=== PATIENT | female | born 1960 | race Caucasian/White ===

== ENCOUNTER 2018-06-03 08:27 | Day surgery (SDC) | payer OTHER ==
[~2018-06-03 08:27] MED LIST: Lactated Ringers 1,000 ML IV SCH; Lidocaine 1%/Sod Bicarbonate in NS 8.4% 1 ML Syringe IDERM PRN; Sodium Chloride 0.9% 10 ML Syringe FLUSH PRN
[2018-06-03] MEDS ORDERED: fentaNYL 100 MCG/2 ML SDV ONE ×2 (08:31→09:53)
[2018-06-03] MEDS ORDERED: Lidocaine 1% 4 ML ONE ×2 (08:31→09:54)
[2018-06-03] MEDS ORDERED: Propofol 200 MG/20 ML SDV ONE ×3 (08:31→11:36)
--- NOTE | 2018-06-03 08:53 | PCM.PREANE ---
Preanesthetic Assessment - Anesthesia/Transfusion/Family Hx Anesthesia History: Prior Anesthesia Without Reaction Family History of Anesthesia Reaction: No Transfusion History: No Prior Transfusion(s) - Review of Systems General: No Symptoms Pulmonary: No Symptoms Cardiovascular: Other (HTN) Gastrointestinal: Other (GERD) Other: Reports: Depression - Physical Assessment NPO Status Date: 06/03/18 NPO Status Time: 04:00 Pulse: 78 O2 Sat by Pulse Oximetry: 100 Respiratory Rate: 16 Blood Pressure: 146/82 Temperature: 36.8 C Weight: 93.4 kg ASA Class: 2 Mental Status: Alert & Oriented x3 Airway Class: Mallampati = 2 Dentition: Reports: Normal Dentition Thyro-Mental Finger Breadths: 3 Mouth Opening Finger Breadths: 3 ROM/Head Extension: Full Lungs: Clear to Auscultation, Normal Respiratory Effort Cardiovascular: Regular Rate, Regular Rhythm - Allergies Allergies/Adverse Reactions: Allergies Allergy/AdvReac Type Severity Reaction Status Date / Time lisinopril Allergy Cough Verified 06/02/18 13:00 Penicillins Allergy Hives Verified 06/02/18 13:00 - Blood Blood Available: No Product(s) Available: None - Anesthesia Plan Pre-Op Medication Ordered: None - Acknowledgements Anesthesia Type Planned: MAC Pt an Appropriate Candidate for the Planned Anesthesia: Yes Alternatives and Risks of Anesthesia Discussed w Pt/Guardian: Yes Pt/Guardian Understands and Agrees with Anesthesia Plan: Yes PreAnesthesia Questionnaire HEENT History: Reports: Allergic Rhinitis Cardiovascular History: Reports: Hypertension Respiratory History: Reports: None Gastrointestinal History: Reports: Colon Polyp, GERD Genitourinary History: Reports: None BLANKET INSPECTOR History: Reports: None Musculoskeletal History: Reports: Other (See Below) Other Musculoskeletal History: right ankle fracture, left knee meniscus tear, toe pain Neurological History: Reports: None Psychiatric History: Reports: Addiction, Depression Endocrine/Metabolic History: Reports: Vitamin D Deficiency Hematologic History: Reports: None Immunologic History: Reports: None Oncologic (Cancer) History: Reports: None Dermatologic History: Reports: None - Past Surgical History Head Surgeries/Procedures: Reports: None HEENT Surgical History: Reports: Tonsillectomy Cardiovascular Surgical History: Reports: None Respiratory Surgical History: Reports: None GI Surgical History: Reports: Colonoscopy Female Surgical History: Reports: Section, Tubal Ligation Male Surgical History: Reports: None Endocrine Surgical History: Reports: None Neurological Surgical History: Reports: None Musculoskeletal Surgical History: Reports: Other (See Below) Other Musculoskeletal Surgeries/Procedures:: right ankle surgery Oncologic Surgical History: Reports: None Dermatological Surgical History: Reports: None - HOME MEDS Home Medications: Home Meds DULoxetine HCl [Duloxetine HCl] 60 mg PO DAILY 06/02/18 [History] amLODIPine Besylate [Amlodipine Besylate] 5 mg PO DAILY 06/02/18 [History] - CURRENT (IN HOUSE) MEDS Current Meds: Current Medications Lactated Ringer's (Ringers, Lactated) 1,000 mls @ 125 mls/hr IV ASDIRECTED NOAH Stop: 06/03/18 23:00 Lidocaine/Sodium Bicarbonate (Buffered Lidocaine 1% In Ns 8.4%) 0.25 ml IDERM ONETIME PRN PRN Reason: Prior to IV Start Stop: 06/03/18 18:00 Sodium Chloride (Saline Flush) 10 ml FLUSH ASDIRECTED PRN PRN Reason: Keep Vein Open Stop: 06/03/18 18:00 Discontinued Medications Fentanyl (Sublimaze) Confirm Administered Dose 100 mcg .ROUTE .STK-MED ONE Stop: 06/03/18 08:32 Lidocaine HCl (Xylocaine-Mpf 1%) Confirm Administered Dose 4 mls @ as directed .ROUTE .STK-MED ONE Stop: 06/03/18 08:32 Propofol (Diprivan 20 Ml) Confirm Administered Dose 400 mg .ROUTE .STK-MED ONE Stop: 06/03/18 08:32
[2018-06-03] MEDS ORDERED: Midazolam 1 MG/ML 2 ML SDV ONE (09:53)
--- NOTE | 2018-06-03 11:41 | PCM.OPNOTE ---
- General Post-Op/Procedure Note Date of Surgery/Procedure: 06/03/18 Operative Procedure(s): colonoscopy, screening Findings: normal colonoscopy. No biopsies obtained. Pre Op Diagnosis: screening colonoscopy, history of tubular adenoma Post-Op Diagnosis: screening colonoscopy, history of tubular adenoma Anesthesia Technique: MAC Primary Surgeon: Jefferson Diallo Anesthesia Provider: Brandon Mendez Complications: None Condition: Good Free Text/Narrative:: Indications for surgery: The patient is 57 yo female, had a tubular adenoma removed from the transverse colon in 2012, was instructed to repeat colonoscopy in 5 years, here for repeat screening colonoscopy. She was consented for colonoscopy with possible biopsy. Indications, risks, and benefits were discussed with the patient in detail. Description of procedure: After surgical consent was verified, the patient was brought to the main OR. A surgical time-out was performed to verify proper patient and proper procedure. Anesthesia performed monitored anesthesia care. A digital rectal exam was performed, which was normal. The colonoscope was inserted into the anus and advanced through the colon to the cecum. Location of the cecum was confirmed by presence of the appendiceal orifice and ileocecal valve. The scope was then withdrawn, with inspection of the colonic mucosa. Retroflexion was performed in the rectum. The remainder of the colon and rectum was normal. Withdrawal time was 10 minutes. There were no colonic or rectal abnormalities. There was no blood loss. The patient tolerated the procedure well, was brought out of anesthesia, and transported to the PACU in stable condition. The patient should repeat colonoscopy in 10 years. Jefferson Diallo M.D., F.A.C.S. General Surgery Pager: [phone]
--- NOTE | 2018-06-03 11:48 | PCM48HPAN ---
Post Anesthesia Note - EVALUATION WITHIN 48HRS OF ANESTHETIC Vital Signs in Normal Range: Yes Patient Participated in Evaluation: Yes Respiratory Function Stable: Yes Airway Patent: Yes Cardiovascular Function Stable: Yes Hydration Status Stable: Yes Pain Control Satisfactory: Yes Nausea and Vomiting Control Satisfactory: Yes Mental Status Recovered: Yes Pulse Rate: 78 Resp Rate: 16 Temperature: 36.8 C Blood Pressure: 146/82 - COMMENTS/OBSERVATIONS Free Text/Narrative:: no anesthesia complications noted
[2018-06-03 13:02] VITALS: BP 136/78
== END 2018-06-03 12:40 | disposition home or self-care (01) ==
LOC: JD.SDS 08:27
PROVIDERS: ATTEND Student in an Organized Health Care Education/Training Program
DX: Z12.11 Encounter for screening for malignant neoplasm of colon (principal); K21.9 Gastro-esophageal reflux disease without esophagitis; I10 Essential (primary) hypertension; F32.9 Major depressive disorder, single episode, unspecified; Z79.899 Other long term (current) drug therapy; Z88.0 Allergy status to penicillin; Z88.8 Allergy status to other drugs, medicaments and biological substances; Z98.890 Other specified postprocedural states; Z86.010 Personal history of colon polyps
CPT/HCPCS: G0105; J2250; J2704; J3010; J7120; 00812; J2001